=== PATIENT | female | born 1940 | race American Indian/Alaskan Native ===

== ENCOUNTER 2022-03-02 07:59 | Emergency (ER) | payer OTHER ==
[~2022-03-02] VITALS: Ht 154.9 cm; Wt 64.9 kg
[~2022-03-02 07:59] MED LIST: BIOTIN1 MG PO; DAILY VALUE1 EACH PO; VITAMIN E100 UNIT PO; ZINC30 MG PO
[2022-03-02] MEDS ORDERED: CYCLOBENZAPRINE10 MG PO (09:43)
[2022-03-02] MEDS ORDERED: PREDNISONE20 MG PO (09:43)
== END 2022-03-02 09:59 | disposition home or self-care (01) ==
LOC: ED 07:59
DX: S39.012A Strain of muscle, fascia and tendon of lower back, initial encounter (principal); S70.02XA Contusion of left hip, initial encounter; F17.200 Nicotine dependence, unspecified, uncomplicated; Z88.0 Allergy status to penicillin; Z79.899 Other long term (current) drug therapy; W18.09XA Striking against other object with subsequent fall, initial encounter
CPT/HCPCS: 72100; 73502; 99283-25; J7512

== ENCOUNTER 2022-03-11 09:02 | Emergency (ER) | payer OTHER ==
[~2022-03-11] VITALS: Ht 154.9 cm; Wt 67.1 kg
[~2022-03-11 09:02] MED LIST changes: +CYCLOBENZAPRINE10 MG PO; +PREDNISONE20 MG PO
--- OUTSIDE RECORDS SUMMARY | 2022-03-11 09:07 | XMS ---
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 Megan has no Care Guidelines for this patient. Aud[facility] (12 MO.) [facility] T[facility] NOTE: Visits indicate total known visits. ED/[facility] VISIT TRACKING (12 MO.) 03/11/2022 09:03 [facility] [place] TYPE: Emergency COMPLAINT: - BACK PAIN 03/02/2022 08:01 [facility] [place] TYPE: Emergency COMPLAINT: - L FLANK/HIP PAIN DIAGNOSES: - Nicotine dependence, unspecified, uncomplicated - Striking against other object with subsequent fall, initial encounter - Allergy status to penicillin - Contusion of left hip, initial encounter - Pain in left hip - Strain of muscle, fascia and tendon of lower back, initial encounter - Other terminologist (current) drug therapy INPATIENT VISIT TRACKING (12 MO.) No inpatient visits to display in this time frame [email or web address]
[2022-03-11] MEDS ORDERED: HYDROCODON-ACE1 EA10 PO (10:53)
== END 2022-03-11 16:05 | disposition home or self-care (01) ==
LOC: ED 09:02
DX: S32.011A Stable burst fracture of first lumbar vertebra, initial encounter for closed fracture (principal); K92.2 Gastrointestinal hemorrhage, unspecified; F17.200 Nicotine dependence, unspecified, uncomplicated; Z20.822 Contact with and (suspected) exposure to COVID-19; Z88.0 Allergy status to penicillin; Z79.899 Other long term (current) drug therapy; W18.30XA Fall on same level, unspecified, initial encounter
CPT/HCPCS: 36415; 36430; 72131; 80053; 85025; 86850; 86900; 86901; 86922; 96361; 96374; 96376; 97161; 99285-25; A9270; C9803; J1170; J7030; P9016; U0003

== ENCOUNTER 2022-06-16 10:43 | Emergency (ER) | payer OTHER ==
[~2022-06-16] VITALS: Ht 154.9 cm; Wt 63.0 kg
[~2022-06-16 10:43] MED LIST changes: +ALDACTONE25 MG PO; +FOSAMAX70 MG PO; +HYDROCODON-ACE1 EA10 PO; +LASIX20 MG PO; +MAGIC MOUTHWASH MM; +OMEPRAZOLE20 MG PO; +PROPRANOLOL HCL10 MG PO; +VOLTAREN ARTHRI20 GM TOP
--- OUTSIDE RECORDS SUMMARY | 2022-06-16 10:46 | XMS ---
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 Megan has no Care Guidelines for this patient. Audra VISIT COUNT (12 MO.) [address] [facility] [address] [facility] TOTAL 4 NOTE: Visits indicate total known visits. ED/[facility] VISIT TRACKING (12 MO.) 06/16/2022 10:43 [facility] [place] TYPE: Emergency COMPLAINT: - SHORTNESS OF BREATH 06/14/2022 13:51 [facility] [place] TYPE: Emergency COMPLAINT: - BLOOD IN STOOL 03/11/2022 09:03 [facility] [place] TYPE: Emergency COMPLAINT: - BACK PAIN DIAGNOSES: - Allergy status to penicillin - Contact with and (suspected) exposure to COVID-19 - Dorsalgia, unspecified - Fall on same level, unspecified, initial encounter - Gastrointestinal hemorrhage, unspecified - Nicotine dependence, unspecified, uncomplicated - Other intermediate (current) drug therapy - Stable burst fracture of first lumbar vertebra, initial encounter for closed fracture 03/02/2022 08:01 [facility] [place] TYPE: Emergency COMPLAINT: - L FLANK/HIP PAIN DIAGNOSES: - Allergy status to penicillin - Contusion of left hip, initial encounter - Nicotine dependence, unspecified, uncomplicated - Other intermediate (current) drug therapy - Pain in left hip - Strain of muscle, fascia and tendon of lower back, initial encounter - Striking against other object with subsequent fall, initial encounter INPATIENT VISIT TRACKING (12 MO.) 06/14/2022 13:52 [facility] [place] TYPE: Observation COMPLAINT: - GI BLEED [email or web address]
[2022-06-16 16:00] VITALS: BP 106/62
== END 2022-06-16 16:00 | disposition home or self-care (01) ==
LOC: ED 10:43
DX: K92.2 Gastrointestinal hemorrhage, unspecified (principal); F17.200 Nicotine dependence, unspecified, uncomplicated; Z88.0 Allergy status to penicillin; Z79.899 Other long term (current) drug therapy
CPT/HCPCS: 36415; 80053; 85025; 85060; 85610; 85730; 86850; 86900; 86901

== ENCOUNTER 2023-01-06 17:58 | Emergency (ER) | payer OTHER ==
[~2023-01-06] VITALS: Ht 154.9 cm; Wt 63.0 kg
[2023-01-06 18:26] LABS: BASOPHILS 1.2 % (0-2); EOSINOPHILS 1.1 % (0-6); HEMATOCRIT 33.7 % (35.0-50.0); HEMOGLOBIN 11.2 g/dL (12.0-18.0); MCH 32.7 (27-36); MCHC 33.2 g/dl (30-36); MCV 98.8 fl (81-99); MONOCYTES 10.1 % (0-12); NEUTROPHILS 78.6 % (39-80); PLATELET COUNT 129 K/uL (140-440); RBC 3.41 M/ul (4.3-5.7); RDW 18.6 (10.5-15.0)
[2023-01-06 18:36] LABS: INR 1.36 (0.80-1.30); PROTIME 16.1 Sec (11.2-14.2)
[2023-01-06 18:48] LABS: ALBUMIN 2.2 g/dL (3.4-5.0); ALBUMIN/GLOBULIN RATIO 0.48 (1.1-2.4); ANION GAP 11.1 (7-21); BILIRUBIN, TOTAL 2.1 ng/dL (0.2-1.0); BUN/CREATININE RATIO 7.82 (6.0-28.6); CALCIUM 8.2 mg/dL (8.5-10.1); CREATININE, SERUM 1.15 mg/dL (0.55-1.02); POTASSIUM 3.1 mmol/L (3.5-5.1); PROTEIN, TOTAL 6.8 g/dL (6.4-8.2)
[2023-01-06] MEDS ORDERED: FUROSEMIDE40 MG PO (21:15)
[2023-01-06] MEDS ORDERED: K-TAB ER20 MEQ PO (21:15)
[2023-01-06] MEDS ORDERED: ALDACTONE50 MG PO (21:15)
[2023-01-06 21:18] VITALS: BP 139/98
--- NOTE | 2023-01-07 10:35 | EKG ---
[facility] [address] [facility] [place] [address] Signed Atrial fibrillation Low voltage QRS Cannot rule out Anterior infarct , age undetermined Abnormal ECG When compared with ECG of 15-JUN-2022 07:43, Atrial fibrillation has replaced Sinus rhythm Minimal criteria for Anterior infarct are now present Nonspecific T wave abnormality now evident in Inferior leads T wave inversion now evident in Anterior leads Confirmed by DIANE DUPONT MD ([id number]) on 01/07/2023 10:35:24 AM Electronically Signed By: DIANE DUPONT 01/07/23 1035 PATIENT NAME: MYRA ANDRADE Electrocardiogram DATE OF : 44 PHYSICIAN: DIANE DUPONT REPORT #: [id number] REPORT IS CONFIDENTIAL AND NOT TO BE RELEASED WITHOUT AUTHORIZATION
== END 2023-01-06 21:31 | disposition home or self-care (01) ==
LOC: ED 17:58
PROVIDERS: Emergency Medicine
DX: K74.60 Unspecified cirrhosis of liver (principal); I48.91 Unspecified atrial fibrillation; F17.200 Nicotine dependence, unspecified, uncomplicated; Z88.0 Allergy status to penicillin; Z79.899 Other long term (current) drug therapy
CPT/HCPCS: 36415; 71045; 80053; 83880; 85025; 85610; 93005; 93010; 96374; 99284-25; A9270; J1940

== ENCOUNTER 2023-01-11 14:03 | Emergency (ER) | payer MEDICARE, OTHER ==
[~2023-01-11] VITALS: Ht 154.9 cm; Wt 71.6 kg
[~2023-01-11 14:03] MED LIST changes: +ALDACTONE50 MG PO; +FUROSEMIDE40 MG PO; +K-TAB ER20 MEQ PO
--- OUTSIDE RECORDS SUMMARY | 2023-01-11 14:06 | XMS ---
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 Megan has no Care Guidelines for this patient. Audra VISIT COUNT (12 MO.) 6 [facility]. TOTAL 6 NOTE: Visits indicate total known visits. ED/C VISIT TRACKING (12 MO.) 01/11/2023 14:[address] [facility] [place] TYPE: Emergency COMPLAINT: - WEAKNESS 01/06/2023 17:58 [facility] [place] TYPE: Emergency COMPLAINT: - LEG SWELLING DIAGNOSES: - Allergy status to penicillin - Localized edema - Nicotine dependence, unspecified, uncomplicated - Other tank terminal gauger (current) drug therapy - Unspecified atrial fibrillation - Unspecified cirrhosis of liver 06/16/2022 10:43 [facility] [place] TYPE: Emergency COMPLAINT: - SHORTNESS OF BREATH DIAGNOSES: - Allergy status to penicillin - Gastrointestinal hemorrhage, unspecified - Nicotine dependence, unspecified, uncomplicated - Other halfway (current) drug therapy 06/14/2022 13:51 [facility] [place] TYPE: Emergency COMPLAINT: - BLOOD IN STOOL 03/11/2022 09:03 [facility] [place] TYPE: Emergency COMPLAINT: - BACK PAIN DIAGNOSES: - Allergy status to penicillin - Contact with and (suspected) exposure to COVID-19 - Dorsalgia, unspecified - Fall on same level, unspecified, initial encounter - Gastrointestinal hemorrhage, unspecified - Nicotine dependence, unspecified, uncomplicated - Other tank terminal gauger (current) drug therapy - Stable burst fracture of first lumbar vertebra, initial encounter for closed fracture 03/02/2022 08:01 [facility] [place] TYPE: Emergency COMPLAINT: - L FLANK/HIP PAIN DIAGNOSES: - Allergy status to penicillin - Contusion of left hip, initial encounter - Nicotine dependence, unspecified, uncomplicated - Other tank terminal gauger (current) drug therapy - Pain in left hip - Strain of muscle, fascia and tendon of lower back, initial encounter - Striking against other object with subsequent fall, initial encounter INPATIENT VISIT TRACKING (12 MO.) 06/14/2022 13:52 [facility] [place] TYPE: Observation COMPLAINT: - GI BLEED DIAGNOSES: - Acute kidney failure, unspecified - Acute posthemorrhagic anemia - Allergy status to penicillin - Contact with and (suspected) exposure to COVID-19 - Diaphragmatic hernia without obstruction or gangrene - Melena - Other tank terminal gauger (current) drug therapy - Portal hypertension - Secondary esophageal varices without bleeding - Unspecified cirrhosis of liver [id number]
[2023-01-11 16:21] LABS: BASOPHILS 0.9 % (0-2); EOSINOPHILS 0.9 % (0-6); HEMATOCRIT 33.5 % (35.0-50.0); LYMPHOCYTES 8.3 % (24-44); MCH 32.8 (27-36); MCHC 32.9 g/dl (30-36); MCV 99.8 fl (81-99); MONOCYTES 8.7 % (0-12); NEUTROPHILS 81.2 % (39-80); PLATELET COUNT 102 K/uL (140-440); RBC 3.35 M/ul (4.3-5.7); RDW 18.1 (10.5-15.0)
[2023-01-11 16:31] LABS: ANION GAP 9.4 (7-21); BUN/CREATININE RATIO 8.82 (6.0-28.6); CALCIUM 8.2 mg/dL (8.5-10.1); CREATININE, SERUM 1.02 mg/dL (0.55-1.02); POTASSIUM 3.4 mmol/L (3.5-5.1)
[2023-01-11 17:49] VITALS: BP 96/52
== END 2023-01-11 17:54 | disposition home or self-care (01) ==
LOC: ED 14:03
PROVIDERS: Emergency Medicine
DX: R18.8 Other ascites (principal); K74.60 Unspecified cirrhosis of liver; D64.9 Anemia, unspecified; Z88.0 Allergy status to penicillin; Z79.899 Other long term (current) drug therapy
CPT/HCPCS: 36415; 49083; 80048; 85025; P9047